=== PATIENT | female | born 1950 | race Two or more races ===

== ENCOUNTER 2018-08-12 19:14 | Emergency (ER) | payer MEDICARE ==
--- NOTE | 2018-08-12 21:58 | ER Document Report ---
ED Medical Screen (RME) - General Chief Complaint: Abdominal Pain Stated Complaint: STOMACH PAIN Time Seen by Provider: 08/12/18 21:33 Mode of Arrival: Ambulatory Information source: Patient Notes: Patient is a 68-year-old female who presents emergency department chief complaint of abdominal pain that started yesterday. Patient reports associated nausea but denies any vomiting or diarrhea. Patient states she feels bloated. Patient reports she had one episode of diarrhea earlier which relieved some of the bloating. Patient denies any fevers. Exam: Abdomen soft, nontender, no guarding no rebound. I have greeted and performed a rapid initial assessment of this patient. A comprehensive ED assessment and evaluation of the patient, analysis of test results and completion of the medical decision making process will be conducted by additional ED providers. Dictation of this chart was performed using voice recognition software; therefore, there may be some unintended grammatical e rrors. TRAVEL OUTSIDE OF THE [place] IN LAST 30 DAYS: No - Related Data Allergies/Adverse Reactions: No Known Allergies Allergy (Verified 08/12/18 19:17) Past Medical History - Social History Chew tobacco use (# tins/day): No Frequency of alcohol use: None Drug Abuse: None - Past Medical History Cardiac Medical History: Reports: Hx Hypercholesterolemia, Hx Hypertension Renal/ Medical History: Denies: Hx Peritoneal Dialysis Physical Exam - Vital signs Vitals: Temp Pulse Resp BP Pulse Ox 98 F 95 18 151/85 H 98 08/12/18 19:17 08/12/18 19:17 08/12/18 19:17 08/12/18 19:17 08/12/18 19:17 Course - Vital Signs Vital signs: Temp Pulse Resp BP Pulse Ox 98 F 95 18 151/85 H 98 08/12/18 19:17 08/12/18 19:17 08/12/18 19:17 08/12/18 19:17 08/12/18 19:17
[2018-08-12 22:11] LABS: ABSOLUTE EOSINOPHILS # (AUTO) 0.1 10^3/uL (0.0-0.6); ABSOLUTE LYMPHOCYTES (AUTO) 1.2 10^3/uL (0.5-4.7); ABSOLUTE MONOCYTES (AUTO) 0.8 10^3/uL (0.1-1.4); ABSOLUTE NEUT (AUTO) 11.6 10^3/uL (1.7-8.2); BASOPHILS % (AUTO) 0.3 % (0-2); HEMATOCRIT 42.7 % (36.0-47.0); HEMOGLOBIN 14.5 g/dL (12.0-15.5); LYMPHOCYTES % (AUTO) 8.6 % (13-45); MEAN CORPUSCULAR HGB CONC 33.9 g/dL (32.0-36.0); MEAN CORPUSCULAR VOLUME 92 fl (80-97); MONOCYTES % (AUTO) 5.8 % (3-13); PLATELET COUNT 216 10^3/uL (150-450); RED BLOOD COUNT 4.66 10^6/uL (3.72-5.28); RED CELL DISTRIBUTION WIDTH 13.3 % (11.5-14.0); SEGMENTED NEUTROPHILS % (AUTO) 84.3 % (42-78); TOTAL CELLS COUNTED % (AUTO) 100 %; WHITE BLOOD COUNT 13.8 10^3/uL (4.0-10.5)
[2018-08-12 22:25] LABS: APPEARANCE,URINE SLIGHTLY-CLOUDY; BILIRUBIN,URINE NEGATIVE (NEGATIVE); COLOR,URINE YELLOW; GLUCOSE, URINE NEGATIVE (NEGATIVE); KETONES,URINE NEGATIVE (NEGATIVE); LEUKOCYTE ESTERASE,URINE LARGE (NEGATIVE); NITRITE,URINE NEGATIVE (NEGATIVE); PROTEIN,URINE NEGATIVE (NEGATIVE); URINE SPECIFIC GRAVITY 1.024; UROBILINOGEN,URINE NEGATIVE mg/dL (<2.0)
[2018-08-12 22:27] LABS: ALANINE AMINOTRANSFERASE 30 U/L (9-52); ALBUMIN 4.6 g/dL (3.5-5.0); ALKALINE PHOSPHATASE 102 U/L (38-126); ANION GAP 12 (5-19); ASPARTATE AMINO TRANSFERASE 37 U/L (14-36); BILIRUBIN,DIRECT 0.2 mg/dL (0.0-0.4); BILIRUBIN,TOTAL 0.6 mg/dL (0.2-1.3); BLOOD UREA NITROGEN 25 mg/dL (7-20); CALCIUM 10.1 mg/dL (8.4-10.2); CARBON DIOXIDE 30 mmol/L (22-30); CHLORIDE 101 mmol/L (98-107); GLUCOSE 166 mg/dL (75-110); POTASSIUM 4.6 mmol/L (3.6-5.0); SODIUM 142.5 mmol/L (137-145); TOTAL PROTEIN 7.2 g/dL (6.3-8.2)
--- NOTE | 2018-08-12 22:49 | RADIOLOGY REPORT (SQ) ---
EXAM DESCRIPTION: XR ABDOMEN 1 VIEW (KUB) COMPLETED DATE/TME: 08/12/2018 21:56 CLINICAL HISTORY: 68 years, Female, abd pain COMPARISON: None. NUMBER OF VIEWS: 2 TECHNIQUE: AP abdomen LIMITATIONS: None. FINDINGS: Evaluation for free air limited on a supine view. The bowel gas pattern is nonspecific. Several mildly prominent air-filled loops of small bowel are present. Gas and stool in the colon. Osteopenia with degenerative changes of the lumbosacral spine. Vascular calcifications. IMPRESSION: Several mildly prominent air-filled loops of small bowel, likely reflecting ileus copyright 2010 [employer]- All Rights Reserved
[2018-08-13] MEDS ORDERED: CEPHALEXIN 500 MG CAPSULE PO ONE (01:21)
--- NOTE | 2018-08-13 01:26 | ER Document Report ---
ED General - General Chief Complaint: Abdominal Pain Stated Complaint: STOMACH PAIN Time Seen by Provider: 08/12/18 21:33 Mode of Arrival: Ambulatory TRAVEL OUTSIDE OF THE [place] IN LAST 30 DAYS: No - HPI Notes: Patient is a 68-year-old female that presents to the emergency department for chief complaint of abdominal pain and nausea. Patient started having abdominal pain and nausea today. She has not had any vomiting. Patient reported feeling bloated and crampy. She denied any aggravating or relieving factors to the pain. She had an episode of diarrhea in the emergency room and reports she is feeling much better now. She does report some urinary frequency but denies dysuria. She denies fevers, chills, chest pain, cough and lightheadedness. Past Medical History: Hypertension, hyperlipidemia Past Surgical History: Negative Social History: Denies tobacco and alcohol use Family History: Reviewed and noncontributory for presenting illness Allergies: Reviewed, see documented allergy list. REVIEW OF SYSTEMS: CONSTITUTIONAL : No fever No chills No diaphoresis No recent illness EENT: No vision changes No congestion No sore throat CARDIOVASCULAR: No chest pain No palpitations RESPIRATORY: No shortness of breath No cough No difficulty breathing GASTROINTESTINAL: abdominal pain nausea No vomiting diarrhea GENITOURINARY: No dysuria Urinary frequency No hematuria No difficulty urinating MUSCULOSKELETAL: No back pain No leg pain No arm pain SKIN: No rashes No lesions LYMPHATIC: No swollen, enlarged glands. NEUROLOGICAL: No lightheadedness No headache No weakness No paresthesias PSYCHIATRIC: No anxiety No depression PHYSICAL EXAMINATION: Vital signs reviewed, nursing noted reviewed. GENERAL: Well-appearing, well-nourished and in no acute distress. HEAD: Atraumatic, normocephalic. EYES: Eyes appear normal, extraocular movements intact, sclera anicteric, conjunctiva are normal. ENT: nares patent, oropharynx clear without exudates. Moist mucous membranes. NECK: Normal range of motion, supple without lymphadenopathy LUNGS: Breath sounds clear to auscultation bilaterally and equal. No wheezes rales or rhonchi. HEART: Regular rate and rhythm without murmurs ABDOMEN: Soft, nontender, normoactive bowel sounds. No rebound, guarding, or rigidity. No masses appreciated. EXTREMITIES: Nontender, good range of motion, no pitting or edema. NEUROLOGICAL: No focal neurological deficits. Moves all extremities spontaneously Motor and sensory grossly intact on exam. PSYCH: Normal mood, normal affect. SKIN: Warm, Dry, normal turgor, no rashes or lesions noted on exposed skin - Related Data Allergies/Adverse Reactions: No Known Allergies Allergy (Verified 08/12/18 19:17) Past Medical History - General Information source: Patient - Social History Smoking Status: Never Smoker Chew tobacco use (# tins/day): No Frequency of alcohol use: None Drug Abuse: None Family History: Reviewed & Not Pertinent Patient has suicidal ideation: No Patient has homicidal ideation: No - Past Medical History Cardiac Medical History: Reports: Hx Hypercholesterolemia, Hx Hypertension Renal/ Medical History: Denies: Hx Peritoneal Dialysis Physical Exam - Vital signs Vitals: Temp Pulse Resp BP Pulse Ox 98 F 95 18 151/85 H 98 08/12/18 19:17 08/12/18 19:17 08/12/18 19:17 08/12/18 19:17 08/12/18 19:17 Course - Re-evaluation Re-evalutation: 08/13/18 01:24 Vitals reviewed. Nursing notes reviewed. Patient is afebrile and nontoxic in appearance. Her abdominal exam is soft with no focal tenderness. She does have a mild leukocytosis and urinary tract infection. Patient's blood pressure is stable with no other Sirs criteria. She is not septic. She will be started on Keflex, first dose given in the emergency room. The remainder of her workup is unremarkable. KUB shows a mild ileus but was taken prior to patient's bowel movement. She states she is feeling much better now than when she arrived. She will follow with her primary care doctor in the next few days for close reevaluation. She will return to the emergency room for any worsening symptoms. Patient in agreement with plan of care and stable at discharge. Of note HPI and patient encounter was translated by family member at bedside. She was offered translation services and declined. Laboratory 08/12/18 08/12/18 08/12/18 22:03 22:03 22:03 WBC 13.8 H RBC 4.66 Hgb 14.5 Hct 42.7 MCV 92 MCH 31.0 MCHC 33.9 RDW 13.3 Plt Count 216 Seg Neutrophils % 84.3 H Lymphocytes % 8.6 L Monocytes % 5.8 Eosinophils % 1.0 Basophils % 0.3 Absolute Neutrophils 11.6 H Absolute Lymphocytes 1.2 Absolute Monocytes 0.8 Absolute Eosinophils 0.1 Absolute Basophils 0.0 Sodium 142.5 Potassium 4.6 Chloride 101 Carbon Dioxide 30 Anion Gap 12 BUN 25 H Creatinine 1.12 Est GFR ( Amer) 58 L Est GFR (Non-Af Amer) 48 L Glucose 166 H Calcium 10.1 Total Bilirubin 0.6 Direct Bilirubin 0.2 Neonat Total Bilirubin Not Reportable Neonat Direct Bilirubin Not Reportable Neonat Indirect Bili Not Reportable AST 37 H ALT 30 Alkaline Phosphatase 102 Total Protein 7.2 Albumin 4.6 Lipase 98.0 Urine Color YELLOW Urine Appearance SLIGHTLY-CLOUDY Urine pH 5.0 Ur Specific [place] 1.024 Urine Protein NEGATIVE Urine Glucose (UA) NEGATIVE Urine Ketones NEGATIVE Urine Blood SMALL H Urine Nitrite NEGATIVE Urine Bilirubin NEGATIVE Urine Urobilinogen NEGATIVE Ur Leukocyte Esterase LARGE H Urine WBC (Auto) 39 Urine RBC (Auto) 13 U Hyaline Cast (Auto) 1 Squamous Epi Cells Auto 3 Urine Mucus (Auto) MANY Urine Ascorbic Acid NEGATIVE KUB X-Ray 08/12/18 21:56 IMPRESSION: Several mildly prominent air-filled loops of small bowel, likely reflecting ileus copyright 2011 [email or web address]- All Rights Reserved - Vital Signs Vital signs: Temp Pulse Resp BP Pulse Ox 98 F 95 18 151/85 H 98 08/12/18 19:17 08/12/18 19:17 08/12/18 19:17 08/12/18 19:17 08/12/18 19:17 - Laboratory Result Diagrams: 08/12/18 22:03 08/12/18 22:03 Laboratory results interpreted by me: 08/12/18 08/12/18 08/12/18 22:03 22:03 22:03 WBC 13.8 H Seg Neutrophils % 84.3 H Lymphocytes % 8.6 L Absolute Neutrophils 11.6 H BUN 25 H Est GFR ( Amer) 58 L Est GFR (Non-Af Amer) 48 L Glucose 166 H AST 37 H Urine Blood SMALL H Ur Leukocyte Esterase LARGE H Discharge - Discharge Clinical Impression: Abdominal pain Qualifiers: Abdominal location: generalized Qualified Code(s): R10.84 - Generalized abdominal pain UTI (urinary tract infection) Qualifiers: Urinary tract infection type: acute cystitis Hematuria presence: without hematuria Qualified Code(s): N30.00 - Acute cystitis without hematuria Condition: Stable Disposition: HOME, SELF-CARE Instructions: Urinary Tract Infection ([facility]), Abdominal Pain ([facility]) Additional Instructions: Please return to the emergency department if you have any worsening, or concern of your symptoms. Please return to the emergency department if you develop chest pain, difficulty breathing, severe abdominal pain, or ongoing vomiting. Please follow-up with your primary care physician in 2-3 days and any other recommended physicians. If prescribed, take all medications as directed. If you have any questions or concerns do not hesitate to return the emergency department for evaluation. Follow-up with your primary care provider or the one referred for reevaluation Prescriptions: Cephalexin Monohydrate [Keflex 500 mg Capsule] 500 mg PO Q6H 5 Days capsule Referrals: [facility] [Provider Group] - Follow up in 3-5 days
[2018-08-13 01:34] VITALS: BP 145/82
--- NOTE | 2018-08-13 07:57 | EKG REPORT ---
SEVERITY:- NORMAL ECG - SINUS RHYTHM : Confirmed by: Hamzah Gomez MD 13-Aug-2018 07:56:10
== END 2018-08-13 01:34 | disposition home or self-care (01) ==
LOC: ER 19:14
DX: N30.00 Acute cystitis without hematuria (principal); R10.84 Generalized abdominal pain; R11.0 Nausea
CPT/HCPCS: 93005; 99284; 36415; 83690; 85025; 80053; 81001; 74018; 93010; A9270

== ENCOUNTER → 2018-09-15 | Outpatient (CLI) | payer MEDICARE, MEDICAID ==
--- NOTE | 2018-09-15 13:00 | WOMENS IMAGING REPORT ---
EXAM DESCRIPTION: BONE DENSITY HIP/SPINE COMPLETED DATE/TIME: 09/15/2018 10:44 am REASON FOR STUDY: M81.0 AGE-RELATED OSTEOPOROSIS WITHOUT CURRENT PATHOLOGICAL FRACTURE M81.0 AGE-RE LATED OSTEOPOROSIS W/O CURRENT PATHOLOGICAL FRAC COMPARISON: None. TECHNIQUE: Dual-Energy X-ray Absorptiometry (DEXA) of the AP Spine and Hip. LIMITATIONS: None. FINDINGS: LUMBAR SPINE: The bone mineral density (BMD) measured from L1-L4 in the AP projection correlates with a T-score of 0.5, which is normal as defined by the World Health Organization. HIP: The bone mineral density (BMD) measured in the left hip correlates with a T-score of 1, which is norm al as defined by the World Health Organization. IMPRESSION: 1. LUMBAR SPINE: NORMAL. 2. HIP: NORMAL. COMMENT: The World Health Organization defines low BMD as follows: T-score: Normal: Greater than -1.0 Osteopenia: Between -1.0 and -2.5 Osteoporosis: Less than -2.5 without fractures Established osteoporosis: Less than -2.5 with fractures In general, you may wish to consider: Diagnosis Treatment Follow-up DEXA Normal BMD Prevention 2-3 years Osteopenia Prevention/Therapy 1-2 years Osteoporosis Therapy Yearly TECHNICAL DOCUMENTATION: JOB ID: [id number] [employer]- All Rights Reserved Reading location - IP/workstation name: [email or web address]
== END ==
LOC: WI 10:12
PROVIDERS: ATTEND Family Medicine
DX: M81.0 Age-related osteoporosis without current pathological fracture (principal)
CPT/HCPCS: 77080

== ENCOUNTER → 2019-07-09 | Outpatient (CLI) | payer MEDICARE, MEDICAID ==
--- NOTE | 2019-07-09 13:47 | RADIOLOGY REPORT (SQ) ---
EXAM DESCRIPTION: NM HIDA SCAN WITH CCK COMPLETED DATE/TIME: 07/09/2019 11:15 am REASON FOR STUDY: RUQ PAIN R10.11 RIGHT UPPER QUADRANT PAIN COMPARISON: None. RADIONUCLIDE AND DOSE: DOSAGE RADIONUCLIDE: 5.37 millicuries Tc99m Mebrofenin. DOSAGE CCK: 1.8 micrograms. DOSAGE MORPHINE: Not required. The route of agent administration: Intravenous TECHNIQUE: Serial imaging right upper quadrant up to 60 minutes following injection of radionuclide. CCK injected after gallbladder visualized. LIMITATIONS: None. FINDINGS: LIVER: Normal visualization without areas of photopenia. INTRAHEPATIC BILE DUCTS: Normal size and no delay in visualization. COMMON BILE DUCT: Normal without dilatation. GALLBLADDER: Normal visualization. Calculated ejection fraction of 52%. Normal range is greater th an 35%. PHYSICAL RESPONSE: Patients presenting complaint was not reproduced. OTHER: No other significant finding. IMPRESSION: NORMAL STUDY WITHOUT CYSTIC OR COMMON DUCT OBSTRUCTION. NORMAL GALLBLADDER EJECTION FRA CTION. NO EVIDENCE FOR BILIARY DYSKINESIS. TECHNICAL DOCUMENTATION: JOB ID: [id number] [employer]- All Rights Reserved Reading location - IP/workstation name: [email or web address]
== END ==
LOC: RAD 09:44
PROVIDERS: ATTEND Family Medicine
DX: R10.11 Right upper quadrant pain (principal)
CPT/HCPCS: 78227; J2805; A9537; Q9969

== ENCOUNTER 2020-04-21 13:16 | Emergency (ER) | payer MEDICARE, MEDICAID ==
[2020-04-21 13:22] VITALS: BP 164/81
[2020-04-21] MEDS ORDERED: IBUPROFEN 600 MG TABLET PO ONE (13:37)
[2020-04-21] MEDS ORDERED: BACITRACIN ZINC OINTMENT 15 GM TP ONE (13:37)
[2020-04-21] MEDS ORDERED: DIPH/PERTUSS(ACELL)/TETANUS VAC/PF 0.5 ML SYR (>=10YO) IM ONE (13:37)
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
== END 2020-04-21 14:56 | disposition home or self-care (01) ==
LOC: ER 13:16
DX: T21.21XA Burn of second degree of chest wall, initial encounter (principal); T20.29XA Burn of second degree of multiple sites of head, face, and neck, initial encounter; T22.112A Burn of first degree of left forearm, initial encounter; T31.0 Burns involving less than 10% of body surface; S00.531A Contusion of lip, initial encounter; M25.561 Pain in right knee; M25.562 Pain in left knee; X12.XXXA Contact with other hot fluids, initial encounter; Y92.000 Kitchen of unspecified non-institutional (private) residence as the place of occurrence of the external cause; E78.00 Pure hypercholesterolemia, unspecified; I10 Essential (primary) hypertension; Z23 Encounter for immunization
CPT/HCPCS: 99284; 96372; 82962; 90715; A9270 ×2; J3490